=== PATIENT | male | born 1975 | race Caucasian/White ===

== ENCOUNTER 2020-11-04 13:45 | Emergency (ER) | payer OTHER ==
[~2020-11-04] VITALS: Ht 172.7 cm; Wt 60.8 kg
[2020-11-04 14:01] VITALS: BP 159/90
--- NOTE | 2020-11-04 14:15 | NUR ---
Patient ambulated to bed 7. RN evaluating the patient at bedside.
--- NOTE | 2020-11-04 14:15 | NUR ---
Patient accompanied by at bedside.
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
--- NOTE | 2020-11-04 15:10 | NUR ---
EMT at bedside for EKG.
--- NOTE | 2020-11-04 15:15 | NUR ---
MARK collected, walked to lab and handed to CPT. Kim
--- NOTE | 2020-11-04 15:19 | NUR ---
Noé alexander swab collected, walked to lab and handed to CPT. Kim
[2020-11-04 15:21] LABS: BASOPHILS % (AUTO) 0.4 % (0.0-2.0); EOSINOPHILS % (AUTO) 0.1 % (0.0-4.0); HEMATOCRIT 44.5 % (36-52); HEMOGLOBIN 15.2 g/dL (12.0-18.0); LYMPHOCYTES # (AUTO) 1.5 K/uL (2.0-11.5); LYMPHOCYTES % (AUTO) 25.4 % (20.5-51.1); MEAN CORPUSCULAR HEMOGLOBIN 30 pg (27-31); MEAN CORPUSCULAR HGB CONC 34 g/dL (33-37); MEAN CORPUSCULAR VOLUME 88.7 fL (80-94); MONOCYTES # (AUTO) 0.3 K/uL (0.8-1.0); MONOCYTES % (AUTO) 5.8 % (1.7-9.3); NEUTROPHILS # (AUTO) 4.1 K/uL (1.8-7.7); NEUTROPHILS % (AUTO) 68.3 % (42.2-75.2); PLATELET COUNT (AUTO) 313 K/uL (140-450); RED BLOOD CELL COUNT(AUTO) 5.02 MIL/uL (4.20-6.10); RED CELL DISTRIBUTION WIDTH 13.5 % (11.6-13.7)
--- NOTE | 2020-11-04 15:30 | NUR ---
Patient resting in high-fowlers position with at bedside. VSS; respirations even/unlabored. Bed locked in lowest position, side rails x 1, call light in reach.
[2020-11-04 15:37] LABS: APPEARANCE,URINE CLEAR (CLEAR); BILIRUBIN,URINE NEGATIVE (NEGATIVE); BLOOD, URINE NEGATIVE (NEGATIVE); COLOR,URINE YELLOW (YELLOW); LEUKOCYTE ESTERASE ,URINE NEGATIVE (NEGATIVE); NITRITE, URINE NEGATIVE (NEGATIVE); UGLUCOSE 3+ (NEGATIVE)
--- NOTE | 2020-11-04 15:40 | NUR ---
RAD at bedside.
[2020-11-04 15:48] LABS: BARBITURATE, URINE NEGATIVE ng/ml (NEG <=200); BENZODIAZEPINE, URINE NEGATIVE ng/mL (NEG <=200); CANNABINOID, URINE NEGATIVE ng/mL (NEG <=50); COCAINE, URINE NEGATIVE ng/mL (NEG <=300); OPIATE, URINE NEGATIVE ng/mL (NEG <=2000); PHENCYCLIDINE SCREEN,URINE NEGATIVE ng/mL (NEG <=25)
[2020-11-04 15:50] LABS: ACETAMINOPHEN < 0.5 ug/ml (10-30); ALBUMIN 4.4 g/dL (3.4-5.0); ANION GAP 14.4 (8-16); ASPARTATE AMINOTRANSFERASE 17 U/L (15-37); CARBON DIOXIDE 26.6 mmol/L (21-32); CHLORIDE 101 mmol/L (98-107); GFR ARICAN-AMERICAN 104 mL/min (>90); GLUCOSE 252 mg/dL (74-106); SALICYLATE < 2.8 mg/dL (2.8-20.0); SODIUM SERUM 138 mmol/L (136-145); TOTAL BILIRUBIN 0.4 mg/dL (0.0-1.0); UREA NITROGEN, BLOOD 11 mg/dL (7-18)
--- NOTE | 2020-11-04 16:03 | NUR ---
DR SKINNER AT BEDSIDE EVALUATING PATIENT
--- NOTE | 2020-11-04 16:23 | NUR ---
Telepsychiatry consultation ordered as requested by Dr. Lu.
--- NOTE | 2020-11-04 16:35 | NUR ---
Patient resting in high-fowlers position with at bedside. VSS; respirations even/unlabored. Bed locked in lowest position, side rails x 1, call light in reach.
--- NOTE | 2020-11-04 17:35 | NUR ---
Telepsychiatry consultation remains at bedside pending call. Patient resting in high-fowlers on telephone at this time. Bed locked in lowest position, side rails x 1, call light in reach.
--- NOTE | 2020-11-04 17:40 | NUR ---
Patient on conference call with Telephysicatric. deburr technician at bedside with two mobile phones on line with hand cutter for patient.
--- NOTE | 2020-11-04 19:20 | NUR ---
Report and transfer of care endorsed to SIDNEY Boyer.
--- NOTE | 2020-11-04 19:20 | NUR ---
Report received from SIDNEY Turner for continuation of care.
--- NOTE | 2020-11-04 19:31 | NUR ---
Patient sitting in bed locked in lowest position, x1 side rail up, breathing even and unlabored, NAD noted, will continue to monitor. Patient presents calm, and co-operative, reports he feel ok, denies suicidal thoughts. Patient reports he felt better after speaking w PSYCH doctor.
[2020-11-04] MEDS ORDERED: METF500T PO (19:48)
[2020-11-04] MEDS ORDERED: TRAZ-343 PO (19:48)
[2020-11-04] MEDS ORDERED: ESCI10TA PO (19:48)
[2020-11-04] MEDS ORDERED: MIRABULK PO (19:48)
[2020-11-04 20:02] VITALS: BP 145/94
--- NOTE | 2020-11-04 20:02 | NUR ---
Patient discharged with v/s stable. Written and verbal after care instructions given and explained. Patient alert, oriented and verbalized understanding of instructions. Ambulatory with steady gait. All questions addressed prior to discharge. ID band removed. Patient advised to follow up with PMD. Rx of TRAZODONE, GLUCOPHAGE, AND LEXAPRO given. Patient educated on indication of medication including possible reaction and side effects. Opportunity to ask questions provided and answered.
== END 2020-11-04 20:02 | disposition home or self-care (01) ==
LOC: MED 13:45
DX: F32.9 Major depressive disorder, single episode, unspecified (principal); Z20.822 Contact with and (suspected) exposure to COVID-19; K59.00 Constipation, unspecified; E11.9 Type 2 diabetes mellitus without complications; R45.851 Suicidal ideations; Z79.84 Long term (current) use of oral hypoglycemic drugs; Z79.899 Other long term (current) drug therapy
CPT/HCPCS: 36415; 74021; 80053; 80305; 81003; 85025; 87426; 93005; 99285; G0480; G0482